=== PATIENT | female | born 1965 | race Two or more races ===

== ENCOUNTER → 2016-07-22 | Outpatient (CLI) | payer OTHER ==
[~2016-07-22] MED LIST: GASTROGRAFIN SOLUTION 30ML (Q9963) As Ordered ONE
--- NOTE | 2016-07-22 10:08 | REP ---
CT study of the chest with IV contrast: History: Unexplained weight loss. 2-3 mm calcified nodules on chest x-ray in the left mid and right mid lung field. No comparison radiographs available. CT contrast dose: 100 ml of Isovue [address] findings: There is no evidence of pleural or pericardial effusion. No adrenal lesion is seen on either side. There is a cyst in the left lobe of the liver measuring 1.6 cm in diameter. This is unchanged from October 28, 2015. There are clips in the gallbladder fossa. Diverticulosis is seen in the right and left colon. The upper abdominal structures are otherwise unremarkable. There is good opacification of the pulmonary arterial tree and the thoracic aorta and no vascular abnormality is appreciated. No hilar adenopathy is seen. No extrathoracic mass or adenopathy is observed. Lung solitario are clear. No significant pulmonary nodule is seen. No mass, infiltrate, or atelectasis is seen. There is a calcified granuloma in the lingular segment of the left upper lobe anteriorly. No other pulmonary nodule is seen. No bony destructive lesion is appreciated. Impression: No active cardiopulmonary disease. Calcified granuloma visible in the lingular segment left upper lobe. No other significant abnormality. Signed by Bigg Magallanes MD 07/22/2016 03:02 P
== END ==
LOC: M RAD 06:59
PROVIDERS: ATTEND Physician Assistant
DX: R91.1 Solitary pulmonary nodule (principal); R63.4 Abnormal weight loss; R10.9 Unspecified abdominal pain; R91.8 Other nonspecific abnormal finding of lung field
CPT/HCPCS: 71260; 74178; Q9963; Q9967

== ENCOUNTER → 2016-07-22 | Outpatient (CLI) | payer OTHER ==
[~2016-07-22] MED LIST changes: +ISOVUE-370 76% 100ML VIAL (Q9967) As Ordered ONE
--- NOTE | 2016-07-22 10:36 | REP ---
CT abdomen and pelvis without and with IV contrast: With oral contrast. History: Weight loss, abdominal pain. Comparison CT study October 28, 2015. This comparison study showed evidence of diverticulitis in the descending colon and a markedly enlarged distorted and fibroid uterus. CT contrast dose: 100 ml of Isovue [address] findings: Digital jewel flat surfacer radiograph shows clips in the right upper quadrant. Bowel gas pattern is normal. The liver shows a cyst in the left lobe 1.5 cm in greatest diameter unchanged from the comparison study October 28, 2015. No other focal liver lesion is seen. Spleen is unremarkable. No adrenal lesion is observed. Pancreas shows no abnormality. There is pancolonic diverticulosis. No CT evidence of diverticulitis is seen today. A normal appendix is seen. Small bowel loops are unremarkable. The markedly enlarged fibroid uterus is again seen. This is seen to fill the pelvis displacing the ovaries. Uterine dimensions are 15.3 cm in oblique anteroposterior dimension by 10.2 cm medial to lateral by 14.1 cm anterior to posterior. There is no evidence of free fluid or lymphadenopathy. No abdominal wall defect is seen. No bony destructive lesion seen. Impression: Markedly enlarged heterogeneous fibroid uterus again seen. Small cyst left lobe of the liver. Post cholecystectomy. Pancolonic diverticulosis. Signed by Bigg Magallanes MD 07/22/2016 03:02 P
== END ==
LOC: M RAD 06:55
PROVIDERS: ATTEND Family Medicine
DX: R63.4 Abnormal weight loss (principal); R10.9 Unspecified abdominal pain; R91.8 Other nonspecific abnormal finding of lung field

== ENCOUNTER → 2016-10-26 | Outpatient (CLI) | payer OTHER ==
--- NOTE | 2016-10-26 10:24 | REPMRS ---
Patient History The patient states she has not had a clinical breast exam in over a year. Patient is postmenopausal. No known family history of cancer. Patient states she has had a 10lbs weight loss since her last mammogram Digital Mammo Screening Bilat: October 26, 2016 - Exam #: [id number] Bilateral CC and MLO view(s) were taken. Technologist: Lorena Sanchez, Technologist Prior study comparison: October 25, 2015, bilateral digital mammo screening bilat performed at [facility]. April 24, 2014, bilateral digital mammo screening bilat performed at [facility]. FINDINGS: The breast tissue is heterogeneously dense. This may lower the sensitivity of mammography. There is a moderate amount of heterogeneously dense fibroglandular tissue which is fairly symmetric. There is no interval development of dominant mass, architectural distortion, or clustered microcalcification typical of malignancy. There has been no change in the appearance of the mammogram from the prior studies. ASSESSMENT: BI-RADS/ACR category 1 mammogram. Negative. Recommendation Routine screening mammogram of both breasts in 1 year (for women over age 40). This mammogram was interpreted with the aid of an FDA-approved computer-aided dectection system. Electronically Signed By: Poncho Magallanes MD 10/26/16 1024
== END ==
LOC: M RAD 09:14
PROVIDERS: ATTEND Family Medicine
DX: Z12.31 Encounter for screening mammogram for malignant neoplasm of breast (principal)

== ENCOUNTER → 2016-12-01 | Outpatient (CLI) | payer OTHER ==
[~2016-12-01] VITALS: Ht 170.2 cm; Wt 68.5 kg
[~2016-12-01] MED LIST changes: -GASTROGRAFIN SOLUTION 30ML (Q9963) As Ordered ONE; -ISOVUE-370 76% 100ML VIAL (Q9967) As Ordered ONE; +LOSA100T37 PO; +LR 1,000 ML IV SCH; +PROG100C PO; +PROPOFOL 200 MG/20 ML VIAL As Ordered ONE; +[UNRECOGNIZED DRUG - REMARK] TOP
--- NOTE | 2016-12-01 15:45 | ROOR ---
Patient Name: Lauryn Galloway Procedure Date: 12/01/2016 3:16 PM Date of : 1965 Age: 51 Room: [facility] Gender: Female Note Status: Finalized Procedure: Colonoscopy Indications: Screening in patient at increased risk: Colorectal cancer in mother 60 or older, This is the patient's first colonoscopy Providers: Dereje Theodore MD Referring MD: KENNETH COOPER MD Requesting Provider: Medicines: Monitored Anesthesia Care Complications: No immediate complications. Procedure: Pre-Anesthesia Assessment: - Prior to the procedure, a History and Physical was performed, and patient medications and allergies were reviewed. The patient is competent. The risks and benefits of the procedure and the sedation options and risks were discussed with the patient. All questions were answered and informed consent was obtained. Patient identification and proposed procedure were verified by the physician, the nurse and the congressional aide in the procedure room. Mental Status Examination: alert and oriented. Airway Examination: normal oropharyngeal airway and neck mobility. CV Examination: regular rate and rhythm. Prophylactic Antibiotics: The patient does not require prophylactic antibiotics. Prior Anticoagulants: The patient has taken no previous anticoagulant or antiplatelet agents. ASA Grade Assessment: II - A patient with mild systemic disease. After reviewing the risks and benefits, the patient was deemed in satisfactory condition to undergo the procedure. The anesthesia plan was to use monitored anesthesia care (MAC). Immediately prior to administration of medications, the patient was re-assessed for adequacy to receive sedatives. The heart rate, respiratory rate, oxygen saturations, blood pressure, adequacy of pulmonary ventilation, and response to care were monitored throughout the procedure. The physical status of the patient was re-assessed after the procedure. The Colonoscope was introduced through the anus and advanced to the cecum, identified by appendiceal orifice and ileocecal valve. The colonoscopy was performed without difficulty. The patient tolerated the procedure well. The quality of the bowel preparation was excellent. Findings: The perianal and digital rectal examinations were normal. Many large-mouthed diverticula were found in the sigmoid colon, descending colon, splenic flexure, transverse colon and hepatic flexure. Impression: - Diverticulosis in the sigmoid colon, in the descending colon, at the splenic flexure, in the transverse colon and at the hepatic flexure. - No specimens collected. Recommendation: - Discharge patient to home. - High fiber diet indefinitely. - Continue present medications. - Repeat colonoscopy in 5-10 years for screening purposes. Dereje Theodore MD 12/01/2016 3:45:01 PM Number of Addenda: 0 Note Initiated On: 12/01/2016 3:16 PM Estimated Blood Loss: Estimated blood loss: none.
[2016-12-01 16:16] VITALS: BP 137/65
== END | disposition home or self-care (01) ==
LOC: M OPP 12:56
PROVIDERS: ATTEND Surgery
DX: Z12.11 Encounter for screening for malignant neoplasm of colon (principal); K57.30 Diverticulosis of large intestine without perforation or abscess without bleeding; Z80.0 Family history of malignant neoplasm of digestive organs; I35.1 Nonrheumatic aortic (valve) insufficiency; I10 Essential (primary) hypertension; D25.9 Leiomyoma of uterus, unspecified; E07.9 Disorder of thyroid, unspecified; K82.9 Disease of gallbladder, unspecified; G47.30 Sleep apnea, unspecified; Z79.890 Hormone replacement therapy